=== PATIENT | male | born 1970 | race Caucasian/White ===

== ENCOUNTER → 2020-12-27 09:14 | Outpatient (CLI) | payer OTHER, SELFPAY ==
[2020-12-27 12:28] LABS: Hematocrit 45.8 % (40-54); Mean Corp Hgb Conc 32.8 g/dL (32-36); Mean Corpuscular Hgb 28.6 pg (27.0-32.0); Mean Corpuscular Volume 87.4 fL (80-94); Mean Platelet Vol. 10.1 fl (6.2-12.0); Platelet Count 269 K/mm3 (150-450); RBC Distribution Width CV 12.8 % (11.6-14.6); RBC Distribution Width SD 40.8 fl (35.1-43.9); Red Blood Count 5.24 M/mm3 (4.6-6.2); White Blood Count 5.8 K/mm3 (4.4-11.0)
[2020-12-27 12:37] LABS: ALB/GLOB Ratio 1.2 RATIO (0.9-2.4); AST(SGOT) 25 U/L (15-37); Alanine Aminotransfer ALT/SGPT 60 U/L (16-61); Alkaline Phosphatase 63 U/L (45-117); Anion Gap 6 (5-15); BUN 14 mg/dL (7-18); BUN/Creat Ratio 13.1 RATIO (10-20); Calcium,Total 8.8 mg/dL (8.5-10.1); Chloride 107 mmol/L (98-107); Cholesterol 215 mg/dL (200); Creatinine, Serum 1.07 mg/dL (0.70-1.30); EST Glomerular Filtration Rate 77 mL/min (>60); Est Glom Filt Rate - Afr Amer 93 mL/min (>60); Globulin 3.2 g/dL (2.2-4.2); Glucose 95 mg/dL (74-106); High Density Lipoprotein 45 mg/dL; PSA,Total - Annual Screen 0.41 ng/mL (0.00-4.00); Potassium 4.3 mmol/L (3.5-5.1); Protein, Total 7.2 g/dL (6.4-8.2); Sodium Level 138 mmol/L (136-145); Thyroid Stim Hormone (TSH) 1.04 uIU/mL (0.358-3.74); Triglycerides 110 mg/dL; Very Low Density Lipoprotein 22 mg/dL (5-40)
[2020-12-27 12:44] LABS: Vitamin B12 507 pg/mL (211-911); Vitamin D,25 Hydroxy 33.3 ng/mL
== END ==
PROVIDERS: PCP Family Medicine; Visit Provider Family Medicine
DX: R53.83 Other fatigue (principal); Z12.5 Encounter for screening for malignant neoplasm of prostate; Z13.220 Encounter for screening for lipoid disorders
CPT/HCPCS: 36415; 80053; 80061; 82306; 82607; 84153; 84403; 84443; 85027; G0103

== ENCOUNTER → 2021-06-06 | Outpatient (CLI) | payer OTHER, SELFPAY | END | disposition home or self-care (01) | PROVIDERS: PCP Family Medicine; Visit Provider Family Medicine | DX: B34.9 Viral infection, unspecified (principal) | CPT/HCPCS: 87635; U0005; U0003 ==

== ENCOUNTER → 2021-06-16 | Outpatient (CLI) | payer OTHER, SELFPAY ==
--- NOTE | 2021-06-16 12:40 | LES_PTH ---
PATIENT: ANNEMARIE FONSECA III [facility] U#:[id number] AGE/SX: 50/M ROOM: RE06/16/[address]: Dr. Truman Torres MD : 1970 BED: DIS: 06/16/2021 SPEC #: [id number] RECD: 06/16/21 14:56 STATUS: RICH URIAS #: [id number] DAVID: 06/16/21 12:[address]: Truman Torres DEPT: SURGICAL PATHOLOGY RECD BY: Ellen Anderson ENTERED: 06/17/21 09:32 SP TYPE: Lesion OTHR DR: Dr. Jay Esquivel MD [facility] Tissues: Skin of external ear, NOS Procedures: Surgery Specimen Level IV HEADER OPERATION: Excision benign lesion right ear PRE-OP DIAGNOSIS: Right ear lesion TISSUE SUBMITTED: Right ear lesion MICROSCOPIC DIAGNOSIS Right ear lesion, excision: Pseudoepitheliomatous hyperplasia, hyperkeratosis and parakeratosis. Dermal chronic inflammation and reactive changes. Negative for malignancy. See comment. OSMEL:hernando 06/18/2021 COMMENT Clinical correlation and appropriate follow up are necessary. MICROSCOPIC DESCRIPTION Slides are reviewed. GROSS DESCRIPTION Received in fixative is one container labeled with the patient's name and designated right ear lesion. The specimen consists of a piece of guzman-white skin measuring 0.5 x 0.5 x 0.3 cm. The specimen is inked, bisected and submitted entirely in one cassette. / OSMEL:hernando 06/17/21 TC:5 CPT: 42149
== END | disposition home or self-care (01) ==
LOC: LABSPEC 15:10
PROVIDERS: PCP Family Medicine; Visit Provider Otolaryngology
DX: L85.8 Other specified epidermal thickening (principal)
CPT/HCPCS: 88305

== ENCOUNTER → 2022-01-08 | Outpatient (CLI) | payer OTHER, SELFPAY | END | disposition home or self-care (01) | PROVIDERS: PCP Family Medicine; Visit Provider Family Medicine | DX: U07.1 COVID-19 (principal) | CPT/HCPCS: 87635; U0003; U0005 ==

== ENCOUNTER → 2023-04-28 | Outpatient (CLI) | payer OTHER, SELFPAY ==
[2023-04-28 15:04] LABS: Absolute Lymphocyte Count 1.91 X10^3/uL (0.83-4.51); Absolute Neutrophil Count 3.6 X10^3/uL (2.0-7.7); Basophil# 0.02 X10^3/uL; Basophil% 0.3 % (0-1); Eosinophil# 0.07 X10^3/uL; Eosinophils% 1.2 % (0-5); Hematocrit 44.6 % (40-54); Hemoglobin 14.6 g/dL (13.0-16.5); Lymphocyte # 1.91 X10^3/ul (0.83-4.51); Lymphocyte % 31.5 % (19-41); Mean Corp Hgb Conc 32.7 g/dL (32-36); Mean Corpuscular Hgb 29.3 pg (27.0-32.0); Mean Corpuscular Volume 89.4 fL (80-94); Mean Platelet Vol. 9.8 fl (6.2-12.0); Monocyte# 0.42 X10^3/uL; Monocyte% 6.9 % (0-10); NRBC Flagged by Analyzer 0 % (0-5); Neutrophil # 3.64 X10^3/uL (2.7-7.7); Neutrophil % 59.9 % (47-70); Platelet Count 271 K/mm3 (150-450); RBC Distribution Width CV 13.3 % (11.6-14.6); RBC Distribution Width SD 43.5 fl (35.1-43.9); Red Blood Count 4.99 M/mm3 (4.6-6.2); White Blood Count 6.1 K/mm3 (4.4-11.0)
[2023-04-28 15:41] LABS: Thyroid Stim Hormone (TSH) 1.34 uIU/mL (0.358-3.74)
[2023-04-28 16:01] LABS: Vitamin D,25 Hydroxy 67.3 ng/mL
[2023-04-28 16:01] LABS: Anion Gap 4 (5-15); BUN 15 mg/dL (7-18); BUN/Creat Ratio 13.6 RATIO (10-20); Calcium,Total 9.3 mg/dL (8.5-10.1); Chloride 106 mmol/L (98-107); Cholesterol 244 mg/dL (200); EST Glomerular Filtration Rate 74 mL/min (>60); Est Glom Filt Rate - Afr Amer 90 mL/min (>60); Glucose 90 mg/dL (74-106); High Density Lipoprotein 52 mg/dL; PSA,Total - Annual Screen 0.52 ng/mL (0.00-4.00); Potassium 4.2 mmol/L (3.5-5.1); Sodium Level 139 mmol/L (136-145); Triglycerides 122 mg/dL; Very Low Density Lipoprotein 24 mg/dL (5-40)
== END | disposition home or self-care (01) ==
PROVIDERS: PCP Family Medicine; Referring Provider Family Medicine; Visit Provider Family Medicine
DX: Z13.1 Encounter for screening for diabetes mellitus (principal); Z12.5 Encounter for screening for malignant neoplasm of prostate; Z13.220 Encounter for screening for lipoid disorders; L74.513 Primary focal hyperhidrosis, soles; E55.9 Vitamin D deficiency, unspecified
CPT/HCPCS: 36415; 80048; 80061; 82306; 84153; 84403; 84443; 85025; G0103

== ENCOUNTER → 2023-07-20 | Outpatient (CLI) | payer OTHER, SELFPAY ==
--- NOTE | 2023-07-20 11:05 | LES_PTH ---
PATHOLOGY RESULTS PATIENT: ANNEMARIE FONSECA III LOC: [facility] U#:[id number] AGE/SX: 52/M ROOM: RE07/20/[address]: Dr. Jay Esquivel MD : 1970 BED: DIS: 07/20/2023 SPEC #: [id number] RECD: 07/20/23 18:25 STATUS: RICH BRIDGETT #: [id number] DAVID: 07/20/23 11:[address]: Jay Esquivel DEPT: SURGICAL PATHOLOGY RECD BY: Jeanne Ngo ENTERED: 07/21/23 08:33 SP TYPE: Lesion Tissues: Skin of arm Procedures: Surgery Specimen Level IV HEADER OPERATION: Nevus excision right elbow PRE-OP DIAGNOSIS: Rule out melanoma TISSUE SUBMITTED: Nevus right elbow MICROSCOPIC DIAGNOSIS Nevus of right elbow, shave biopsy: Benign seborrheic keratosis, inflamed. AM:hernando 07/22/2023 COMMENT Case has been reviewed in consultation with Dr. Alberto who concurs with the above diagnosis. IDC:SJ MICROSCOPIC DESCRIPTION Slides are reviewed. GROSS DESCRIPTION Received in fixative is one container labeled with the patient's name and designated right elbow. The specimen consists of a shave biopsy of guzman-light brown skin measuring 2.0 x 1.0 x 0.1 cm. The specimen is inked, serially sectioned and submitted entirely in one cassette. / OSMEL:hernando 07/21/2023 TC:5 CPT: 81524
--- OUTSIDE RECORDS SUMMARY | 2023-07-20 18:45 | XMS RPT_ITS | CCD ---
Author Name Unknown Address [address] [place] [address] Organization [facility] Results Test Name Value Interpretation Reference Range Facil ity Progress note 05-08-2021 Note Date & Type Note Facility 05-08-2021 Note HNO ID: [id number] Author: Casey Costa MD Service: ? 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 I had seen the patient on April 29 and discussed with him that this did not need to be removed. The patient considered his options and decided it does annoy him and he wishes to have it removed. Annemarie returns today for the procedure. Annemarie has not taken aspirin or aspirin products for the past 7 days. VITALS: There were no vitals taken for this visit. On examination, he has a 1 cm perianal tag in his posterior midline PROCEDURE: EXCISION OF SKIN LESION The risks, benefits and anticipated outcomes of the procedure, the risks and benefits of the alternatives to the procedure, and the roles and tasks of the personnel to be involved, were discussed with the patient, and the patient consents to the procedure and agrees to proceed. I verify that I personally obtained the patient's consent. The patient`s skin was prepped and draped in the usual fashion. A combination of Lidocaine and Marcaine was injected into the skin. Electrocautery was used to transect the base of the skin tag and was removed in its entirety. The specimen measured 1 by 1 cm. This was sent to pathology. The patient tolerated the procedure well. Assessment IMPRESSION: Status post excision via cautery of perianal skin tag likely related to anal fissure PLAN: If the patient notes any problems or signs of wound infections, the patient should contact me immediately. The patient has no sutures to remove. Diagnoses: (K60.2) Anal fissure (primary encounter diagnosis) Return to Clinic: The patient is instructed to follow-up with me as needed. Casey Costa MD [employer] / SAFETY CHECKLIST Procedure to be Performed: Excision of Anal Skin Tag Sign In: A Moment of CARE was completed. Personnel directly involved with the procedure wore the appropriate PPE (Personal Protective Equipment). Patient/Surrogate Stated/Verified: PATIENT VERIFIED(optional for EMERGENT procedures): Patient name, Date of , Relevant allergies and The intended procedure Time Out Communication: Intended patient and procedure match the source documents. Consent documented and matches the intended procedure. Sign Out: SIGN OUT (optional for EMERGENT procedures): No specimen collected. Aliyah Cali [facility] Progress note 05-01-2021 Note Date & Type Note Facility 05-01-2021 Note HNO ID: [id number] Author: Casey Costa MD Service: ? Author Type: Physician Type: Progress Notes Filed: 05/01/2021 6:40 AM Note Text: HISTORY AND PHYSICAL Annemarie Vieyra 1970 REFERRING PHYSICIAN: Jay Esquivel, * CHIEF COMPLAINT: Consult (hemorrhoid and possible pilonidal cyst) HPI: The patient is a 50 year old male with a complaint of a nodule in his posterior anal area and a history of a chronic pilonidal cyst. The patient states he has a longstanding history of occasional swelling at the site of his pilonidal cyst. He has noticed this for decades. He states that if it feels like it is getting swollen in the area he will perform some local care and usually resolves. He has never had incision and drainage of the site. The patient also presents feeling that he likely has hemorrhoids. He notes a posterior small nodule at the 12 o'clock position just towards the base of the tailbone. He notes occasionally pain and bleeding with bowel movements. In general he denies constipation diarrhea or other irregular bowel activity. 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 The patient is being seen by me today at the request of Dr. Jay Esquivel MD for my opinion and advice regarding an asymptomatic pilonidal cyst and anal nodule with bleeding. PAST MEDICAL HISTORY Diagnosis Date - GERD (gastroesophageal reflux disease) - Hemorrhoids PAST SURGICAL HISTORY Procedure Laterality Date - PAST SURGICAL HISTORY OF 1976 tonsils - PAST SURGICAL HISTORY OF hemmoroids - PAST SURGICAL HISTORY OF 1991 wisdom teeth Current Outpatient Medications Medication Sig - acetaminophen (TYLENOL EXTRA STRENGTH) 500 mg tablet Take 500 mg by mouth every 8 hours as needed. - Clindamycin Phosphate (CLEOCIN T) 1 % lotion Apply bid to aa (Patient not taking: Reported on 04/29/2021 ) - hydrOXYzine HCl (ATARAX) 25 mg tablet Take 1 tablet by mouth daily at bedtime. (Patient not taking: Reported on 04/29/2021 ) - naproxen sodium (ALEVE) 220 mg tablet Take 220 mg by mouth as needed. (Patient not taking: Reported on 04/29/2021 ) No current facility-administered medications for this visit. ALLERGIES: Grass Pollen PERSONAL HISTORY: Social History Tobacco Use - Smoking status: Former Smoker Types: Cigarettes - Smokeless tobacco: Former User Types: Chew Vaping Use - Vaping Use: Never used Substance Use Topics - Alcohol use: Yes - Drug use: No FAMILY HISTORY: FAMILY HISTORY Problem Relation Age of Onset - Diabetes Father - Hypertension Father - Diabetes Paternal Grandmother REVIEW OF SYMPTOMS: The review of systems data was entered by the nurse and reviewed by me Nursing Notes: Suzette Woods RN 04/29/2021 3:46 PM Signed REVIEW OF SYSTEMS: General: The patient NOTES fatigue, denies weight loss, NOTES weight gain, denies feeling hot, and denies feelings of cold. Eyes: The patient denies glaucoma, denies eye injury/surgery, wears glasses or contacts. Ear/Nose/Throat: The patient NOTES allergies, NOTES hayfever, NOTES ear infections, and denies bloody noses. Cardiovascular: The patient denies chest pain, denies heart disease, denies high blood pressure,denies cardiac stent, denies prior heart attack, denies irregular heart beat, denies high cholesterol, denies poor circulation, denies heart failure, other cardiac issues, denies claudication, denies cold feet, denies peripheral arterial stent. Respiratory: The patient denies tuberculosis, denies pneumonia, denies frequent cough, denies pulmonary embolism, denies shortness of breath, and denies coughing up blood. Gastrointestinal: The patient denies difficulty swallowing, NOTES acid reflux, denies ulcers, denies vomiting, denies jaundice/hepatitis, denies gallbladder problems, denies black or tarry stools, NOTES hemorrhoids, NOTES bleeding from rectum, denies diverticulitis, denies constipation, NOTES diarrhea, denies loss of stool control, and denies hernias. Kidney/Bladder: The patient denies kidney stones, denies urine infections, and denies bloody urine. Skin: The patient denies a history of skin cancer, denies bleeding/changing moles, and denies a history of skin rash. Neurologic: The patient denies a history of epilepsy/convulsions, denies headaches, denies head/spinal injuries, and denies stroke/TIA. Psychiatric: The patient denies psychiatric medications, denies depression, and denies voices, denies substance abuse. Endocrine: The patient denies thyroid disorders, denies diabetes, and denies hormonal problems. Hematologic: The patient denies a history of bruising, denies bleeding, and denies anemia, denies blood clots. Infections: The patient denies a history of measles and mumps, denies rheumatic fever, and denies sexually transmitted diseases. Musculoskeletal: The patie (more content not included)... [facility] Summary Purpose Family History No Family History Records Found Advance Directives No Advanced Directives Records Found Additional Source Comments (unrecognized sect ion and content) No Status Records Found INFORMATION SOURCE (unrecogn ized section and content) FOR RECORDS PERTAINING TO PATIENTS WHO ARE OR HAVE BEEN ENROLLED IN A CHEMICAL DEPENDENCY/SUBSTANCEABUSE PROGRAM, SOME INFORMATION MAY BE OMITTED. This clinical summary was aggregated from multiple sources. Caution should be exercised in using it in the provision of clinical care. This summary normalizes information from multiple sources, and as a consequence, information in this document may materially change the coding, format and clinical context of patient data. In addition, data may be omitted in some cases. CLINICAL DECISIONS SHOULD BE BASED ON THE PRIMARY CLINICAL RECORDS. [facility] [employer] provides no warranty or guarantee of the accuracy or completeness of information in this document.
== END | disposition home or self-care (01) ==
PROVIDERS: PCP Family Medicine; Visit Provider Family Medicine
DX: L82.0 Inflamed seborrheic keratosis (principal)
CPT/HCPCS: 88305

== ENCOUNTER → 2024-01-13 | Outpatient (CLI) | payer OTHER, SELFPAY ==
--- NOTE | 2024-01-13 12:45 | RAD_ITS ---
STUDY: X-RAY - CERVICAL SPINE REASON FOR EXAM: Male, 53 years old. pain TECHNIQUE: 7 view(s) of the cervical spine were obtained. COMPARISON: None FINDINGS: Normal anterior atlantoaxial articulation. Normal odontoid process. Normal cervical lordosis. No subluxation on the flexion extension views to suggest instability. Normal vertebral bodies and endplates. Normal disc space heights. Normal visualized intervertebral neuroforamina. The soft tissue structures are unremarkable. RAD/Cerv Spine Obl/Flex/Ext Comp IMPRESSION: Normal x-ray examination of the visualized cervical spine. Electronically Signed: Casey Atkins MD at 13:42 EDT ,
== END | disposition home or self-care (01) ==
LOC: MTRAD 12:44
PROVIDERS: PCP Family Medicine; Referring Provider Family Medicine; Visit Provider Family Medicine
DX: M54.2 Cervicalgia (principal)
CPT/HCPCS: 72052

== ENCOUNTER → 2024-12-11 | Outpatient (CLI) | payer OTHER, SELFPAY ==
--- NOTE | 2024-12-11 08:22 | US_ITS ---
PROCEDURE: ABDOMEN LIMITED 12/11/2024 REASON FOR EXAM: BLOATING, GAS COMPARISON: None FINDINGS: Liver: Diffusely echogenic suggesting fatty infiltration. Gallbladder: No stones, sludge, wall thickening or tenderness. Common bile duct: Normal measuring 5.2 mm. . Pancreas: Normal Other: Visualized portions of the right kidney are unremarkable. No right upper quadrant ascites. US/Abdomen Limited IMPRESSION: Fatty infiltration of the liver. The liver is not enlarged. Reading Location: [id number]
== END | disposition home or self-care (01) ==
PROVIDERS: PCP Internal Medicine; Referring Provider Nurse Practitioner Acute Care; Visit Provider Nurse Practitioner Acute Care
DX: R14.3 Flatulence (principal); R14.0 Abdominal distension (gaseous); R19.7 Diarrhea, unspecified
CPT/HCPCS: 76705

== ENCOUNTER → 2025-03-16 | Outpatient (CLI) | payer OTHER, SELFPAY ==
--- NOTE | 2025-03-16 07:48 | CT_ITS ---
PROCEDURE: LIMITED CHEST CT CARDIAC ONLY 03/16/2025 REASON FOR EXAM: HYPERLIPIDEMIA MILD TECHNIQUE: Procedure Code: [id number] Modality: CT Procedure: LIMITED CHEST CT CARDIAC ONLY One or more dose reduction techniques were used (e.g., Automated exposure control, adjustment of the mA and/or kV according to patient size, use of iterative reconstruction technique). RADIATION DOSE SUMMARY: CTDlvol: 12.19 mGy DLP: 243.79 mGycm COMPARISON: None. CT/Limited Chest CT Cardiac Only IMPRESSION: Limited imaging of the lungs demonstrates no acute process. No pleural effusion or pneumothorax is seen in visualized areas. No adenopathy is noted. The visualized upper abdomen demonstrates no significant abnormality. Reading Location: [id number]
--- OUTSIDE RECORDS SUMMARY | 2025-03-16 08:07 | XMS RPT_ITS | CCD ---
Author Organization [facility] Care Team Providers Care Assembler Adjuster Name Role Phone Alvin MEDLEY, Dr. Thompson Primary Care Provider Alvin MEDLEY, Dr. Thompson Referring Provider Filippo APPRENTICE PAINTER NECKTIES-C, Nhung Attending Provider Filippo APPRENTICE PAINTER NECKTIES-CNhung Referring Provider Darren MEDLEY, Dr. Levy Primary Care Provider Mildred Banks Referring Unavailable Mildred Banks Attending Unavailable Mildred Banks Primary Care Unavailable Darren, Mildred Primary Care Unavailable Nhung Barkley Referring Unavailable Nhung Barkley Attending Unavailable Mildred Banks Referring Unavailable Mildred Banks Primary Care Unavailable Ranjan Choi Attending Unavailable Ward Esquievl Primary Care Unavailable Nhung Barkley Attending Unavailable Ward Esquivel Referring Unavailable Medications Current Medications Medication Drug Class(es) Dates Sig (Normalized) Sig (Original) fluticasone propionate 0.05 mg/actuat metered dose nasal spray (2 sources) Corticosteroid Start: 11-27-2024 Fluticasone Propionate 50 mcg/actuation spray,suspension Active 1 NMA INTRANASAL daily November 27, 2024 12:00am administer into each nostril Sod Sulf-Pot Chloride-Mag Sulf (2 sources) Start: 11-29-2024 Sod Sulf-Pot Chloride-Mag Sulf (Sutab) 1.479-0.188- 0.225 gram tablet Active 0 PO per package directions 24 0 November 29, 2024 12:00am take as directed for split dose bowel prep Start: 11-29-2024 Sod Sulf-Pot C hloride-Mag Sulf (Sutab) 1.479-0.188- 0.225 gram tablet Active 0 PO per package directions November 29, 2024 12:00am take as directed for split dose bowel prep Problems Active Problems Problem Classification Problem Date Documented Da te Episodic/Chronic Disorders of lipid metabolism (1 source) Hyperlipidemia, unspecified; Translations: [Hyperlipidemia, unspecified] Onset: Chronic Esophageal disorders (6 sources) Gastroesophageal reflux disease without esophagitis; Translations: [Gastro-esophageal reflux disease without esophagitis] 11-27-2024 Chronic Other and unspecified benign neoplasm (4 sources) History of polyp of colon; Translations: [History of colonic polyps] 11-29-2024 Episodic Other gastrointestinal disorders (2 sources) Irritable bowel syndrome; Translations: [Irritable bowel syndrome without diarrhea] 11-29-2024 Chronic Other gastrointestinal disorders (4 sources) Diarrhea; Translations: [Diarrhea, unspecified] 11-29-2024 Episodic Other gastrointestinal disorders (4 sources) Passing flatus; Translations: [Flatulence] 11-29-2024 Episodic Other gastrointestinal disorders (4 sources) Abdominal bloating; Translations: [Abdominal distension (gaseous)] 11-29-2024 Episodic Other gastrointestinal disorders (1 source) Flatulence; Translations: [Flatulence] Onset: Episodic Other upper respiratory disease (2 sources) Seasonal allergy; Translations: [Other seasonal allergic rhinitis] 11-29-2024 Chronic Past or Other Problems Problem Classification Problem Date Documented Da te Episodic/Chronic Other gastrointestinal disorders (1 source) Abdominal distension (gaseous); Translations: [Abdominal distension (gaseous)] Onset: 11-29-2024 Episodic Other gastrointestinal disorders (1 source) Diarrhea, unspecified; Translations: [Diarrhea, unspecified] Onset: 11-29-2024 Episodic Results Test Name Value Interpretation Reference Range Facility Abdomen Limitedon 12-11-2024 Abdomen Limited [facility] Imaging Services [address] [place] [id number] Abdomen Limited MR#: [id number] Acct: [id number] Name: ANNEMARIE VIEYRA III Rep #: [id number] : 1970 M 54 From: Yuriy hastings MD PCP: Dr. Mildred Banks MD Status: REG CLI Study: Abdomen Limited Date of Exam: 12/11/24 Exam# [id number] Ordering Dr: Nhung Barkley PROCEDURE: ABDOMEN LIMITED 12/11/2024 REASON FOR EXAM: BLOATING, GAS COMPARISON: None FINDINGS: Liver: Diffusely echogenic suggesting fatty infiltration. Gallbladder: No stones, sludge, wall thickening or tenderness. Common bile duct: Normal measuring 5.2 mm. . Pancreas: Normal Other: Visualized portions of the right kidney are unremarkable. No right upper quadrant ascites. US/Abdomen Limited IMPRESSION: Fatty infiltration of the liver. The liver is not enlarged. Reading Location: [id number] CC: KAYLEIGH Barkley; Dr. Mildred Banks MD Event Marketing Intern: Signed Normal [facility] Gastroenterology Visit Repor ton 11-29-2024 Gastroenterology Visit Report [facility] Gastroenterology [address] [place] [address] OFFICE VISIT Date of Service: 11/29/24 MR#: [id number] Acct: [id number] Name: ANNEMARIE VIEYRA III Rep #: [id number] : 1970 Provider: KAYLEIGH myers Age/Sex: 54/M Location: [facility] Status: Signed Intake Vital Signs 11/29/24 09:40 Height 6 ft Weight: 216 lb 4 oz BMI 29.3 BP 126/82 H Respiration 18 Pulse 73 Pulse Oximetry (%) 96 Oxygen Delivery Method room air Intake Visit Reasons: YUKO REFERRAL GERD HPYLORI Chief Complaint: GI symptoms Insurance Processor Required: No Accompanied by: Self Is patient in pain?: No Allergies No Known Allergies Allergy (Unverified 11/29/24 09:43) Medications ???Medication ???Instructions ???Recorded ???Confirmed ???Type fluticasone propionate 50 1 spray intranasal QDAY 11/27/24 0 11/29/24 History mcg/actuation nasal spray,suspension sodium sul 1.479 gram-potas ch See Rx Instructions PO PER PKG DIR 11/29/24 11/29/24 Rx 0.188 gram-magnes sul 0.225 gram #24 tabs tablet (Sutab) Nurse's Note: Inconsistent bowel movements, gas, bloating, and acid reflux. Would like to be tested for food allergies. Has tried cutting certain foods out of his diet but that has not helped. [facility] Medical History (Updated 11/29/24 @ 10:20 by Nhung Barkley, APPRENTICE PAINTER NECKTIES-C) Hives Back problem Arthritis Eye twitch Hemorrhoids Folliculitis Other intervertebral disc degeneration, lumbar region without mention of lumbar back pain or lower extremity pain Heartburn Surgical History (Updated 11/27/24 @ 16:34 by Leisa Rojas) H/O hemorrhoidectomy History of tonsillectomy Family History (Updated 11/27/24 @ 16:37 by Leisa Rojas) Father Hypertension Heart disease Obesity Grandfather Hypertension Heart disease Mother Arthritis Social History (Updated 11/27/24 @ 16:35 by Leisa Rojas) Smoking Status: Former smoker Smokeless tobacco user: chewing tobacco alcohol intake: current alcohol intake frequency: holidays/special occasions only substance use type: does not use frequency: 5-6 times per week HPI HPI Chief Complaint: GI symptoms Details: ANNEMARIE VIEYRA, is a 54 M who presents to the office today for 35lb rottweiler puppy - inconsistent bowel habits, can have a lot of diarrhea and runny stools - removed diet coke from diet and this has helped bloating and gas - Colonoscopy 5 years ago - h/o lots of polyps - denies any h/o EGD - c/o bad reflux the past couple years - has been on and off PPI - pantoprazole - symptoms can be bad enough - denies any family h/o colon CA DIET: not great - chicken, rice, protein drinks - protein drinks can cause bad diarrhea - other days he can licorice and taffy for dinner - tried to be healthy and eat - tries to eat non-processed foods ROS Const Constitutional: No fatigue, fever(s) or weight change ENT ENT: No difficulty swallowing Gastro GI: Positive for bloating, diarrhea and heartburn; No abdominal pain, belching, change in bowel habits, change in stool character, coffee ground emesis, constipation, cramping, difficulty swallowing, feeling full early, excessive flatus, incontinent of stools, Vomiting blood/hematemesis, Blood in stool, loose stools, Black,tarry stools, nausea/dyspepsia, pain with swallowing, vomiting or other Musc Musculoskeletal: Positive for back pain, muscle cramps, numbness, stiffness, tingling and Arthritis; No joint pain Skin Skin: No yellowing of the eye or itchy eyes Neuro Neurology: Positive for numbness and tingling Psych Psychiatric: No anxiety and No depression Endo Endocrine: No fatigue or weight change Aller/Imm Allergy/Immunologic: No itchy eyes Landon/Lymp Hematologic/Lymphatic: No easy bleeding or easy bruising Exam Const General: cooperative, healthy appearing, no acute distress and well developed Nutritional Appearance: average body habitus and well nourished Orientation: alert and oriented x3 HENMT Head: normocephalic Ears: hearing grossly normal bilaterally Mouth: moist mucous membranes Teeth and gingiva: dentition normal Eyes Conjunctivae: conjunctivae normal Sclera: sclerae normal Neck Neck: normal visual inspection, full ROM and trachea midline Resp Effort Inspection: normal respiratory effort, able to speak in complete sentences and symmetric chest movement Auscultation: Bilateral: Clear to Auscultation Cardio Rate: regular rate Rhythm: regular rhythm GI Inspection: normal to inspection Auscultation: normal bowel sounds Palpation: soft and no hepatosplenomegaly Rectal Exam: deferred Skin General: no rashes or lesions noted and turgor normal Neuro General: patient alert and patient oriented x3 Cranial Nerves: other (CN's grossly in (more content not included)... Normal [facility] Absolute lymphocyte countOrd ered By: Shreyas Esquivel on 04-28-2023 Lymphocytes Auto (Unsp spec) [#/Vol] 1.91 10*3/uL 0.83-4.51 [facility] Basophil percentageOrdered B y: Shreyas Esquivel on 04-28-2023 Chloride [Moles/Vol] 106 mmol/L 98-107 [facility] Cholesterol [Mass/Vol] 244 mg/dL <200 [facility] Comment on above: <200 mg/dL Desirable 200-240 mg/dL Borderline >240 mg/dL High Risk Glucose [Mass/Vol] 90 mg/dL 74-106 [facility] Potassium [Moles/Vol] 4.2 mmol/L 3.5-5.1 [facility] Sodium [Moles/Vol] 139 mmol/L 136-145 [facility] Triglyceride [Mass/Vol] 122 mg/dL <199 [facility] Comment on above: The drugs N-Acetylcy steine and Metamizole may falsely depress this assay.Serum Triglycerides Reference Interval Normal <150 mg/dL Borderline high 150 - 199 mg/dL High 200 - 499 mg/dL Very High > or = 500 mg/dL Basophils/100 WBC (Bld) 0.3 % 0-1 [facility] Eosinophils/100 WBC (Bld) 1.2 % 0-5 [facility] Neutrophils (Bld) [#/Vol] 3.6 10*3/uL 2.0-7.7 [facility] Neutrophils/100 WBC (Bld) 59.9 % 47-70 [facility] Testosterone [Mass/Vol] 270.33 ng/dL [facility] Comment on above: CENTRAL 90% REFERENC E RANGES MALE AGE <50 197.44 - 669.58 ng/dL MALE AGE > or = 50 187.72 - 684.19 ng/dL FEMALE AGE <50 8.38 - 35.01 ng/dL FEMALE AGE > or = 50 <7.00 - 35.92 ng/dL Effective as of 01/14/21 WBC (Bld) [#/Vol] 6.1 10*3/uL 4.4-11.0 [facility] Blood erythrocytes count (nu mber/volume)Ordered By: Shreyas Esquivel on 04-28-2023 RBC (Bld) [#/Vol] 4.99 10*6/uL 4.6-6.[address] [facility] Blood hemoglobin measurement (mass/volume)Ordered By: Shreyas Esquivel on 04-28-2023 Hemoglobin (Bld) [Mass/Vol] 14.6 g/dL 13.0-16.5 [facility] Blood lymphocytes/100 leukoc ytesOrdered By: Shreyas Esquivel on 04-28-2023 Lymphocytes/100 WBC (Bld) 31.5 % 19-41 [facility] Blood monocytes/100 leukocyt esOrdered By: Shreyas Esquivel on 04-28-2023 Monocytes/100 WBC (Bld) 6.9 % 0-10 [facility] Blood platelet mean volumeOr dered By: Shreyas Esquivel on 04-28-2023 Platelet mean volume (Bld) [Entitic vol] 9.8 fL 6.2-12.0 [facility] Determination of erythrocyte mean corpuscular volume (MCV)Ordered By: Shreyas Esquivel on 04-28-2023 MCV (RBC) [Entitic vol] 89.4 fL 80-94 [facility] Hematocrit Auto (Bld) [Volum e fraction]Ordered By: Shreyas Esquivel on 04-28-2023 Hematocrit (Bld) [Volume fraction] 44.6 % 40-54 [facility] Laboratory - Chemistry and C hemistry - challengeOrdered By: Shreyas Esquivel on 04-28-2023 CO2 [Moles/Vol] 29.0 mmol/L 21.0-32.0 [facility] Urea nitrogen/Creatinine [Mass ratio] 13.6 mg/mg 10-20 [facility] Laboratory - Hematology and Cell countsOrdered By: Shreyas Esquivel on 04-28-2023 Erythrocyte distribution width (RBC) [Entitic vol] 43.5 fL 35.1-43.9 [facility] Erythrocyte distribution width (RBC) [Ratio] 13.3 % 11.6-14.6 [facility] Immature granulocytes/100 WBC (Bld) 0.200 % 0.0-0.9 [facility] Comment on above: IG% - Immature Granu locytes (promyelocytes, myelocytes and metamyelocytes) > 1% indicates that a LEFT SHIFT is Present. MCH (RBC) [Entitic mass] 29.3 pg 27.0-32.0 [facility] Nucleated RBC/100 WBC (Bld) [Ratio] 0 % 0-5 [facility] MCHC Auto (RBC) [Mass/Vol]Or dered By: Shreyas Esquivel on 04-28-2023 MCHC (RBC) [Mass/Vol] 32.7 g/dL 32-36 [facility] No Panel InformationOrdered By: Shreyas Esquivel on 04-28-2023 Estimated GFR (MDRD) Amer 90 mL/min >60 [facility] Comment on above: GFR Calc Estimated GFR (MDRD) Non-Af Amer 74 mL/min >60 [facility] Comment on above: Non- GFR Calc Prostate Specific Antigen Screen 0.52 ng/mL 0.00-4.00 [facility] Comment on above: This test was perfor med using the TPSA assay method [facility] the[facility]. Values obtained with differentassay methods cannot be used interchangably.When changing PSA assays in the course of monitoring apatient, additional sequential testing should be carriedout to confirm baseline values. Thyroid Stimulating Hormone (TSH) 1.34 uIU/mL 0.358-3.74 [facility] Vitamin D 25-Hydroxy 67.3 ng/mL [facility] Comment on above: Vitamin D 25(OH) Sta tus Range Deficiency <20 ng/mL (50nmol/L) Insufficiency 20 - 30 ng/mL (50 - 75 nmol/L) Sufficiency 30 - 100 ng/mL (75 - 250 nmol/L) Toxicity >100 ng/mL (>250 nmol/L) Platelets bldOrdered By: Allyn Esquivel on 04-28-2023 Platelets (Bld) [#/Vol] 271 10*3/uL 150-450 [facility] Serum or plasma calcium castro urement (mass/volume)Ordered By: Shreyas Esquivel on 04-28-2023 Calcium [Mass/Vol] 9.3 mg/dL 8.5-10.1 [facility] Serum or plasma cholesterol in HDL measurement (mass/volume)Ordered By: Shreyas Esquivel on 04-28-2023 Cholesterol in HDL [Mass/Vol] 52 mg/dL >40 [facility] Comment on above: The drugs N-Acetylcy steine and Metamizole may falsely depress this assay. Reference Range HDL <40 mg/dL Low HDL Cholesterol HDL >or= 60 mg/dL High HDL Cholesterol Serum or plasma cholesterol in VLDL measurement (mass/volume)Ordered By: Shreyas Esquivel on 04-28-2023 Cholesterol in VLDL [Mass/Vol] 24 mg/dL 5-40 [facility] Serum or plasma creatinine m easurement (mass/volume)Ordered By: Shreyas Esquivel on 04-28-2023 Creatinine [Mass/Vol] 1.10 mg/dL 0.70-1.30 [facility] Comment on above: The validity of the calculated GFR & GFRAA in patients over 70 years has not been determined. Clinical correlation is essential. Serum or plasma low density lipoprotein (LDL) cholesterol measurement (mass/volume)Ordered By: Shreyas Esquivel on 04-28-2023 Cholesterol in LDL [Mass/Vol] 168 mg/dL 0-130 [facility] Serum or plasma urea nitroge n measurement (mass/volume)Ordered By: Shreyas Esquivel on 04-28-2023 Urea nitrogen [Mass/Vol] 15 mg/dL 7-18 [facility] Thin prep Papanicolaou smear with manual screeningOrdered By: Shreyas Esquivel on 04-28-2023 Thin prep Papanicolaou smear with manual screening 4 5-15 [facility] Laboratory - Microbiology an d Antimicrobial susceptibilityon 01-08-2022 SARS-CoV-2 (COVID-19) RNA BERTIN+probe Ql (Unsp spec) Detected Not Detect [facility] Work Phone: Comment on above: Normal Reference Ran ge: Not DetectedMethod:(RT-PCR) real-time reverse transcriptase PCRLuminex RobArt Instrument*The Food and Drug Administration (FDA) has issued an Emergency Use Authorization (EAU) for the RobArt SARS-CoV-2 Assay for the rapid detection of the virus that causes COVID-19. This test has been validated, but the FDAs independent review of this validation is pending.*Negative results do not preclude infection and should not be used as the sole basis for treatment or patient management. Optimum specimen types and timing for peak viral levels during infections caused by SARS-CoV-2 have not been determined. Collection of multiple specimens from the same patient may be necessary to detect the virus. The possibility of a false negative result should be considered if the patient has clinical presentation or has had recent exposure. CNOVon 05-08-2021 CNOV Office Visit (GENSWS ) ANNEMARIE VIEYRA ([id number]) 1970 M Date Time Provider Department 05/08/21 7:00 AM CASEY CRAIN During your visit today, we recorded the following information about you: Casey Crain MD 05/08/2021 9:48 AM Signed FOLLOW UP VISIT - SKIN LESION NAME: Annemarie Vieyra CLINIC NO.: [id number] DATE OF SERVICE: 05/08/2021 : 1970 REFERRING PHYSICIAN: Ward Esquivel MD Annemarie is a patient I [...] to follow-up with me as needed. Casey Crain MD UNIVERSAL PROTOCOL / SAFETY CHECKLIST Procedure [...] EMERGENT procedures): No specimen collected. Aliyah Cali Referring Provider: WARD ESQUIVEL [[id number]] Allergies As of Date: 05/08/2021 Noted Allergy Reaction GRASS POLLEN 05/08/2019 9 - Itching Date Reviewed: 05/08/2021 Reviewed by: Aliyah Cali - Fully Assessed Reason for Visit: Procedure [88] Cmt: Excision of Anal Skin Tag Primary Visit Diagnosis:Anal fissure [K60.2] Order(s):SURGICAL PATHOLOGY [[id number]] Order #: [id number] Prescriptions as of 05/08/2021 - acetaminophen (TYLENOL EXTRA STRENGTH) 500 mg tablet Take 500 mg by mouth every 8 hours as needed. - Clindamycin Phosphate (CLEOCIN T) 1 % lotion Apply bid to aa - hydrOXYzine HCl (ATARAX) 25 mg tablet Take 1 tablet by mouth daily at bedtime. - naproxen sodium (ALEVE) 220 mg tablet Take 220 mg by mouth as needed. Problem List As Of Date 05/08/2021 Noted Resolved Spondylolisthesis of lumbar region [M43.16] 05/25/2017 Letter Text Encounter Status:Closed by CASEY CRAIN on 05/08/21 [facility] CNOVon 04-29-2021 CNOV Office Visit (GENSWS ) ANNEMARIE VIEYRA ([id number]) 1970 M Date Time Provider Department 04/29/21 3:10 PM CASEY CRAIN GENSWS During your visit today, we recorded the following information about you: Temperature Pulse Blood pressure Weight 98 degrees 90/minute 122/80 106.3 kg Height 1.829 m Suzette Woods RN 04/29/2021 3:46 PM Signed [...] and denies sexually transmitted diseases. Musculoskeletal: The patient NOTES back pain/injury, NOTES back problems, NOTES sciatica, denies knee/foot trouble, NOTES arthritis, or denies gout. When was patient's last Mammogram screening? N/A Last Colonoscopy: 10/2020 GENNY Rankin MD 04/29/2021 4:12 PM Signed The following instructions are important for you related to your office visit today with the [facility]. INSTRUCTIONS FOR AN ANAL FISSURE You have an anal fissure. An anal fissure is a small tear at at the edge of the anus. It is usually caused by straining with bowel movements, but sometime it occurs during periods of loose stools or diarrhea. 70% of the time, anal fissures will heal will regulation of the stools and conservative measures. Regulation of the bowel habits is most important - The fissure will not heal if there is continued straining. I usually recommend fiber for initial regularion. Add Miralax - now available over the counter, if fiber alone isn't helping the constipation. Healing of the fissure will not occur until bowel regulation is achieved I recommend that you avoid spicy foods and perform sitz baths three to four times per day and after bovel movements. A sitz bath is drawing luke warm water in the bathtub and soaking. The purpose is to relax the sphincter and rinse the anal area. DO NOT ADD EPSOM SALTS OR OTHER INGREDIENTS THIS CAN INCREASE THE BURNING. I will recommend a topical pain ointment, usually dibucaine or proctocream With each bowel movement, I recommend placing the topcial pain ointment prior to the bowel movements and use baby wipes and perform a sitz bath after each bowel movement. Dibucaine can be used between times as needed for anal pain. It the above measures are not helping within one week, call the office, and we may prescribe Diltiazem ointment. ( this is different from Dibucaine). If prescribed, it should be applied to the anal area twice a day. If you note any difficulties or concerns, you should contact our office immediately. If you note any additional difficulties, questions, or concerns, you should contact our office immediately @ [phone] and ask to be transferred to the General Surgery department. Casey Crain MD 05/01/2021 6:40 AM Signed HISTORY AND PHYSICAL Annemarie Vieyra 1970 REFERRING PHYSICIAN: Ward Esquivel, * CHIEF COMPLAINT: Consult (hemorrhoid (more content not included)... Normal [facility] Vital Signs Date Time Vital Sign Value Performing Clinician Byron david 11-29-2024 09:40-0400 Body height 182.[address] Ward Esquivel MD Work Phone: [facility] 11-29-2024 09:40-0400 Body mass index (BMI) [Ratio] 29.3 kg/m2 Dr. Ward Esquivel MD Work Phone: [facility] 11-29-2024 09:40-0400 Body weight 98.[address] Ward Esquivel MD Work Phone: [facility] 11-29-2024 09:40-0400 Diastolic blood pressure 82 mm[Hg] Dr. Ward Esquivel MD Work Phone: [facility] 11-29-2024 09:40-0400 Heart rate 73 /min Dr. Ward Esquivel MD Work Phone: [facility] 11-29-2024 09:40-0400 Respiratory rate 18 /min Dr. Ward Esquivel MD Work Phone: [facility] 11-29-2024 09:40-0400 SaO2% (BldA) [Mass fraction] 96 % Dr. Ward Esquivel MD Work Phone: [facility] 11-29-2024 09:40-0400 Systolic blood pressure 126 mm[Hg] Dr. Ward Esquivel MD Work Phone: [facility] Encounters Encounter Date Encounter Type Care Provider Facility Start: 03-16-2025 ambulatory [facility] Facility:[facility] Start: 03-02-2025 ambulatory [facility] Facility:[facility] Start: 12-11-2024 End: 12-11-[address] Ward Esquivel MD Work Phone: [facility] Start: 12-11-2024 End: 12-11-2024 Patient encounter procedure Nhung VICTOR -[facility] Work Phone: Start: 12-11-2024 End: 12-11-2024 ambulatory Mildred Banks Facility:[facility] Start: 11-29-2024 End: 11-29-2024 Patient encounter procedure Nhung VICTOR -[facility] Work Phone: Start: 11-29-2024 End: 11-29-[address] Ward Esquivel MD Work Phone: [facility] Work Phone: Start: 07-20-2023 End: 07-20-2023 ambulatory [facility] Work Phone: Start: 07-20-2023 End: 07-20-2023 [facility] Work Phone: Start: 04-28-2023 End: 04-28-2023 Patient encounter procedure [facility], [place] Work Phone: Start: 01-08-2022 End: 01-08-2022 Patient encounter procedure [facility], Specimen Procedures Date Procedure Procedure Detail Performing Clinician Start: 12-11-[address] Ward Esquivel MD Work Phone: Plan of Treatment Date Care Activity Detail Author US Abdomen limited [facility] Payers Date Payer Category Payer Self-pay [id number] 2024 Self-pay [id number] 2016 Private Health Insurance [id number] Unknown [id number] Unknown [id number] Unknown [id number] [id number] [id number] Unknown [id number] Social History Date Type Detail Facility Start: 08-12-2016 End: 08-12-2016 Tobacco smoking status FLIS Unknown if ever smoked [facility] Start: 1970 Sex Assigned At Male [facility] Start: 11-27-2024 End: 11-29-2024 Tobacco smoking status NHIS Ex-smoker (finding) [facility] Radiology Diagnostic study note 12-11-2024 Note Date & Type Note Facility 12-11-2024 Radiology Diagnostic study note [facility] Imaging Services [address] [place], [place] [address] Abdomen Limited MR#: [id number] Acct: [id number] Name: ANNEMARIE VIEYRA III Rep #: [id number] : 1970 M 54 From: Karan Wu MD PCP: Dr. Mildred Banks MD Status: REG C SWATHI Study:Abdomen Limited Date of Exam: 11/20 09/12 Exam# [id number] Ordering Dr: Nhung Barkley APPRENTICE PAINTER [place] PROCEDURE: ABDOMEN LIMITED 12/11/2024 REASON FOR EXAM: BLOATING, GAS COMPARISON: None FINDINGS: Liver: Diffusely echogenic suggesting fatty infiltration. Gallbladder: No stones, sludge, wall thickening or tenderness. Common bile duct: Normal measuring 5.2 mm. . Pancreas: Normal Other: Visualized portions of the right kidney are unremarkable. No right upperquadrant ascites. US/Abdomen Limited IMPRESSION: Fatty infiltration of the liver. The liver is not enlarged. Reading Location: [facility] CC: APPRENTICE PAINTER NECKTIES-C Nhung Barkley; Dr. Mildred Banks MD ~ Event Marketing Intern: Signed [facility] Chief complaint+Reason for visit Narrative 11-29-2024 Note Date & Type Note Facility 11-29-2024 Chief complaint+R dane for visit Narrative YUKO REFERRAL GERD HPYLORI November 29, 2 025 9:18am BLOATING GAS December 11, 2024 8:07 am Reason for Visit Admit Date Bloating November 29, 2024 9:18 am Diarrhea November 29, 2024 9:18 am Flatulence November 29, 2024 9:18 am GERD (gastroesophageal reflux disease) J une 2024 9:18am Personal history of colonic polyps November 29, 2024 9:18am [facility] Work Phone: Evaluation note 11-29-2024 Note Date & Type Note Facility 11-29-2024 Evaluation note Diagnosis Onset Date Resolution Bloating acute November 29 9:18am Diarrhea acute November 29 9:18am Flatulence acute November 29 9:18am GERD (gastroesophageal reflux disease) acute November 29, 2024 9:18am Personal history of colonic polyps acute November 29, 2024 9:18am [facility] Work Phone: Progress note 05-08-2021 Note Date & Type Note Facility 05-08-2021 Note HNO ID: [id number] Author: Casey Crain MD Service: ? Author Type: Physician Type: Progress Notes Filed: 05/08/2021 9:48 AM Note Text: FOLLOW UP VISIT - SKIN LESION NAME: Annemarie Vieyra CLINIC NO.: [id number] DATE OF SERVICE: 05/08/2021 : 1970 REFERRING PHYSICIAN: Ward Esquivel MD Annemarie is a patient I [...] to follow-up with me as needed. Casey Crain MD UNIVERSAL PROTOCOL / SAFETY CHECKLIST Procedure [...] EMERGENT procedures): No specimen collected. Aliyah Cali [facility] Progress note 05-01-2021 Note Date & Type Note Facility 05-01-2021 Note HNO ID: [id number] Author: Casey Crain MD Service: ? 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 The patient is being seen by me today at the request of Dr. Ward Esquivel MD for my opinion and advice [...] Musculoskeletal: The patie (more content not included)... [facility] Chief complaint+Reason for visit Narrative Note Date & Type Note Facility Chief complaint+Reason for v isit Narrative YUKO REFERRAL GERD HPYLORI November 29 025 9:18am Reason for Visit Admit Date Bloating November 29, 2024 9:18 am Diarrhea Elizabeth 11th, 2025 9:18 am Flatulence November 29, 2024 9:18 am GERD (gastroesophageal reflux disease) J une 2024 9:18am Personal history of colonic polyps November 29, 2024 9:18am [employer] Work Phone: Evaluation note Note Date & Type Note Facility Evaluation note No assessment information availa [facility] Work Phone: Evaluation note Note Date & Type Note Facility Evaluation note Diagnosis Onset Date Resolution Bloating acute November 29 9:18am Diarrhea acute November 29 9:18am Flatulence acute November 29 9:18am GERD (gastroesophageal reflux disease) acute November 29, 2024 9:18am Personal history of colonic polyps acute November 29, 2024 9:18am [employer] Work Phone: Reason for referral (narrative) Note Date & Type Note Facility Reason for referral (narrative) No reason for referral information available [employer] Work Phone: Summary Purpose Family History No Family History Records Found Relationship Condition Age at Onset Recorded Date/T nadege father Hypertension Unknown Cardiac disease Unknown Obesity Unknown grandfather Hypertension Unknown mother Arthritis Unknown Advance Directives No Advanced Directives Records FoundNo Advanced Directives Records Found Chief Complaint and Reason for Visit Chief Complaint EORDER Additional Source Comments (unrecognized sect ion and content) No Status Records FoundNo Status Records Found INFORMATION SOURCE (unrecogn ized section and content) DATE CREATED AUTHOR 07/24/2021 [facility] DATE CREATED AUTHOR AUTHOR'S ORGANIZ ATION 03/02/2025 [facility] Goals (unrecognized section and content) Goals may be documented in a n alternate sectionGoals may be documented in an alternate sectionGoals may be documented in an alternate sectionGoals may be documented in an alternate section Care Teams (unrecognized sec tion and content) Team Status: Active Member Role Status Dates Dr. Shreyas Esquivel MD Family Provider Active Dr. Shreyas Esquivel MD Primary Care Provider Activ e Team Status: Inactive Member Role Status Dates Dr. Shreyas Esquivel MD Primary Care Provider, Atte nding Provider Active Team Status: Inactive Member Role Status Dates Dr. Shreyas Esquivel MD Primary Care Provider, Attending Provider, Referring Provider Active Team Status: Active Member Role Status Dates Dr. Ward Esquivel MD Family Provider Active Dr. Ward Esquivel MD Primary Care Provider Acti ve Team Status: Inactive Member Role Status Dates Dr. Ward Esquivel MD Primary Care Provider Acti ve Start: November 29, 2024 End: November 29, 2024 Dr. Ward Esquivel MD Referring Provider Active Start: November 29, 2024 End: November 29, 2024 KAYLEIGH Meraz Attending Provider Active Start: November 29, 2024 End: November 29, 2024 Team Status: Active Member Role/Relationship Status Dates Dr. Mildred Banks MD Primary Care Provider Active Team Status: Inactive Member Role/Relationship Status Dates Dr. Ward Esquivel MD Primary Care Provider Acti ve Start: November 29, 2024 End: November 29, 2024 Dr. Ward Esquivel MD Referring Provider Active Start: November 29, 2024 End: November 29, 2024 KAYLEIGH Meraz Attending Provider Active Start: November 29, 2024 End: November 29, 2024 Team Status: Inactive Member Role/Relationship Status Dates KAYLEIGH Meraz Attending Provider Active Start: December 11, 2024 End: December 11, 2024 KAYLEIGH Meraz Referring Provider Active Start: December 11, 2024 End: December 11, 2024 Dr. Mildred Banks MD Primary Care Provider Active Start: December 11, 2024 End: December 11, 2024 FOR RECORDS PERTAINING TO PATIENTS WHO ARE [...] BE BASED ON THE PRIMARY CLINICAL RECORDS. [facility] [employer] in [place] [facility]. provides no warranty or guarantee of the accuracy or completeness of information in this document.
--- NOTE | 2025-03-19 10:23 | CA.SCORE ---
Calcium Scoring Date of Study:: 03/16/25 Indications Indications: FH Coronary Calcium Scoring: High-resolution Computed Tomographic imaging of the chest was performed on [03/16/25 ], with particular attention paid to the coronary arteries. Images from the examination were analyzed for the presence and extent of coronary artery calcification , using coronary calcium quantification software. The patient tolerated the procedure well and there were no complications. The results of the coronary calcification analysis are provided below. Findings Coronary Artery Left Main (LM): 0 Left Anterior Descending (LAD): 63.6 Left Circumflex (LCX): 39.7 Right Coronary Artery (RCA): 67.9 Total Agatston Score: 171.2 Percentile Rankin-70 Calcium Scoring Interpretation: Different methods to categorize the overall amount of coronary plaque. Overall amount CAC SIS Visual of coronary plaque P1 Mild -100 <2 1-2 vessels with mild amount of plaque P2 Moderate 101-300 3-4 1-2 vessels with moderate amount, 3 vessels with mild amount of plaque P3 Severe 301-999 5-7 3 vessels with moderate amount, 1 vessel with severe amount of plaque P4 Extensive >1000 >8 2-3 vessels with severe amount of plaque Calcium Score: Moderate: 1-2 vessels w/moderate amt, 3 vessels w/mild amt of plaque Conclusion: 3 vessels with mild amount of plaque noted.
== END | disposition home or self-care (01) ==
LOC: CT 07:46
PROVIDERS: PCP Internal Medicine; Referring Provider Internal Medicine; Visit Provider Internal Medicine
DX: E78.5 Hyperlipidemia, unspecified (principal)
CPT/HCPCS: 75571; 76380

== ENCOUNTER 2025-04-18 05:11 | Day surgery (SDC) | payer OTHER, SELFPAY ==
[2025-04-18] VITALS (7 sets, daily range): BP systolic 93–105; BP diastolic 59–83; PULSE 52–68; RESP 16–18; TEMP 36.2–36.5; O2SAT 97–98; BMI 27.1
[2025-04-18] MEDS: Lactated Ringers 1,000 ML 15 ML IV (05:59)
--- NOTE | 2025-04-18 06:30 | COLBX_PTH ---
PATIENT: ANNEMARIE FONSECA III LOC: EN U#:[id number] AGE/SX: 54/M ROOM: RE04/18/[address]: Dr. Ranjan Choi DO : 1970 BED: DIS: 04/18/2025 SPEC #: [id number] RECD: 04/18/25 09:36 STATUS: RICH BRIDGETT #: [id number] DAVID: 04/18/25 06:[address]: Ranjan Choi DEPT: SURGICAL PATHOLOGY RECD BY: Torsten Carpenter ENTERED: 04/18/25 10:31 SP TYPE: COLON BX OTHR DR: Dr. Mildred Banks MD Tissues: A - Esophagus, NOS B - Gastric mucous membrane C - Duodenum, NOS D - Transverse colon E - Ileum, NOS F - COLON BIOPSY G - Rectum, NOS Procedures: Immunohistochemical Stains Surgery Specimen Level IV HEADER OPERATION: Colonoscopy with biopsy, EGD with biopsy PRE-OP DIAGNOSIS: Diarrhea, bloating, flatulence, GERD, personal history of colonic polyps TISSUE SUBMITTED: A- Distal esophagus biopsy, B- Gastric body biopsy, C- Duodenum biopsy, D- Transverse colon polyp biopsy, E- Terminal ileum biopsy, F- Random colon biopsy, G- Rectal polyp biopsy MICROSCOPIC DIAGNOSIS A. Distal esophagus, biopsy: - Squamocolumnar mucosa negative for goblet cell metaplasia. - Negative for dysplasia. B. Gastric body, biopsy: - Oxyntic mucosa with mild chronic inflammation. - IHC negative for H. pylori organisms. C. Duodenum, biopsy: - No specific pathologic change. - Negative for increased intraepithelial lymphocytes. D. Transverse colon, polyp, biopsy: - Tubular adenoma. E. Terminal ileum, biopsy: - No specific pathologic change. F. Colon, random, biopsy: - No specific pathologic change. - The histologic features of microscopic colitis are not demonstrated. G. Rectum, polyp, biopsy: - Hyperplastic polyp. MICROSCOPIC DESCRIPTION Slides are reviewed. All matched controls reacted appropriately. These tests were developed and their performance characteristics determined by [facility]. They may not have been cleared or approved by the U.S. Food and Drug Administration. The FDA has determined that such clearance or approval is not necessary. The above immunohistochemical markers and/or special?stains have been reviewed by the Pathologist. GROSS DESCRIPTION A. Received in fixative is one container labeled with the patient's name and designated Distal esophagus biopsy. The specimen consists of two irregular fragments of guzman tissue that measure 0.3 and 0.4 cm. The specimen is totally submitted in one cassette. B. Received in fixative is one container labeled with the patient's name and designated Gastric body biopsy. The specimen consists of two irregular fragments of guzman tissue that measure 0.5 and 0.8 cm. The specimen is totally submitted in one cassette. C. Received in fixative is one container labeled with the patient's name and designated Duodenum biopsy. The specimen consists of one irregular fragment of guzman tissue that measures 0.4 cm. The specimen is totally submitted in one cassette. D. Received in fixative is one container labeled with the patient's name and designated Transverse colon polyp. The specimen consists of one irregular fragment of guzman tissue that measures 0.3 cm. The specimen is totally submitted in one cassette. E. Received in fixative is one container labeled with the patient's name and designated Terminal ileum biopsy. The specimen consists of two irregular fragments of guzman tissue that measure 0.4 and 0.5 cm. The specimen is totally submitted in one cassette. F. Received in fixative is one container labeled with the patient's name and designated Random colon biopsy. The specimen consists of multiple irregular fragments of guzman tissue that in aggregate measure 1.2 x 0.6 x 0.1 cm. The specimen is totally submitted in one cassette. G. Received in fixative is one container labeled with the patient's name and designated Rectal polyp. The specimen consists of three irregular fragments of guzman tissue that measure 0.1 to 0.4 cm. The specimen is totally submitted in one cassette. [place] 04/18/2025 CPT:22056l0,25987
--- NOTE | 2025-04-18 06:34 | PCM.PRE.AN2 ---
ASA Classification* ASA Classification ASA Classification: 2 Assessment & Plan Anesthesia* Anesthesia Assessment Anesthesia Assessment: Discussed sedation and/or anesthesia options, risks, benefits, and alternatives with patient/parents/legal guardian/POA. Questions invited. The patient/parents/legal guardian/POA seems to understand and agrees to proceed with anesthesia plan. Reviewed the physical assessment, medical history, allergy history and patient home medications list prior to surgery/procedure/anesthetic and documented any changes. Performed airway and anesthesia risk assessments. Anesthesia Type Anesthesia Type: MAC Anesthesia Focused Assessment* Temperature: 97.2 F Pulse Rate: 68 Blood Pressure: 105/83 Respiratory Rate: 18 Pulse Ox: 98 Airway Assessment Mouth opens: >3 cm Mallampati Score: II Labs Anesthesia Preop lab: CBC WBC, (4.4-11.0) 6.1 K/mm3 04/28/23, 12:35 RBC, (4.6-6.2) 4.99 M/mm3 04/28/23, 12:35 Hgb, (13.0-16.5) 14.6 g/dL 04/28/23, 12:35 Hct, (40-54) 44.6 % 04/28/23, 12:35 Plt Count, (150-450) 271 K/mm3 04/28/23, 12:35 CHEMISTRY Potassium, (3.5-5.1) 4.2 mmol/L 04/28/23, 12:36 Sodium, (136-145) 139 mmol/L 04/28/23, 12:36 BUN, (7-18) 15 mg/dL 04/28/23, 12:36 Creatinine, (0.70-1.30) 1.10 mg/dL 04/28/23, 12:36 Glucose, (74-106) 90 mg/dL 04/28/23, 12:36 TSH, (0.358-3.74) 1.34 uIU/mL 04/28/23, 12:35 COAG Pre-Assessment Diagnosis/Proposed Procedure Planned Operative Procedure(s): EGD, COLONOSCOPY Anesthesia History Anesthesia History - digital solutions architect: Anesthesia History - digital solutions architect Hx Hospitalization No 04/16/25 13:22 Any Problems With Anesthesia No 04/16/25 13:22 Cholinesterase deficiency No 04/16/25 13:22 You/Your Family Experience No 04/16/25 13:22 fever (hyperthermia) with Relationship Recent Exposure to Contagious No 04/18/25 05:48 Disease Does patient have nerve No 04/16/25 13:22 stimulator Patient instructed to have device shut off --Does patient have Pacemaker No 04/18/25 05:48 or ICD? When Was Last Pacemaker Check QUESTION #4 FULL TEXT: You/Your Family Experience fever (hyperthermia) with Anesthesia Last Oral Intake Last Oral intake: Last Oral Intake NPO since 00:30 04/18/25 05:48 Meds taken in AM with sips of No 04/18/25 05:48 water? Meds patient instructed to take am of surgery PONV PONV - digital solutions architect: PONV - digital solutions architect Female No 04/16/25 13:22 HX of Motion Sickness No 04/16/25 13:22 HX of N/V After Surgery No 04/16/25 13:22 Non-Smoker No 04/16/25 13:22 Duration of Surgery greater No 04/16/25 13:22 than 60 minutes Number of Risk Factors PONV Score Height & Weight Height & Weight: Anesthesia: Height & Weight Height 6 ft 04/18/25 05:48 Weight: 91 kg 04/18/25 05:48 Body Mass Index (BMI) 27.1 04/18/25 05:48 Respiratory Assessment Respiratory Assessment - digital solutions architect: Respiratory Tract Infection Hx - digital solutions architect Hx Respiratory Tract Infection No 04/16/25 13:22 STOP Sleep Apnea STOP Sleep Apnea - digital solutions architect: STOP Sleep Apnea - digital solutions architect Hx Hypertension No 04/16/25 13:22 Hx Sleep Apnea No 04/16/25 13:22 CPAP BIPAP Do you snore loudly (louder No 04/16/25 13:22 than talking or can be heard Do you often feel tired/ No 04/16/25 13:22 fatigued/ sleepy during daytime? Has anyone observed you stop No 04/16/25 13:22 breathing during sleep? STOP Results Negative 04/16/25 13:22 QUESTION #5 FULL TEXT : Do you snore loudly (louder than talking or can be heard through closed doors)? Tobacco Use History Tobacco Use History - digital solutions architect: Tobacco Use History - digital solutions architect Tobacco Use Smoking Status Former smoker 04/16/25 13:22 Hx Tobacco Use Yes: CHEWS 04/16/25 13:22 Years Smoking Packs Smoked per Day Smoking Cessation Date was Yes - quit smoking within 15 04/16/25 13:22 within the last 15 years years Hx Smoking Cessation Date Hx Smoking Cessation Counseling Hematologic Medial History Hematologic Hx - digital solutions architect: Hematologic Medical Hx - documentation clerk Hx of Blood Transfusion No 04/16/25 13:22 Hx of Transfusion in last 3 No 04/16/25 13:22 Months Date of Last Transfusion (if within last 3 months) Ever experience any problems No 04/16/25 13:22 with transfusion(s)? Specify any problems Hx of Preganancy in last 3 N/A 04/16/25 13:22 Months Nurse Filling Out Transfusion MGRIFFITH 04/16/25 13:22 & Questions: Date: 04/16/25 04/16/25 13:22 Time: 13:24 04/16/25 13:22 Patient unable to answer at this time (ie. confused, unrespo /Reproduction History /Reproductive History - digital solutions architect: /Reproductive Hx- digital solutions architect Hx Now Gestational Age (in weeks): EDC: Hx Hx Para Hx Section SAB Active Medications Active Medications: Current Medications Generic Name Dose Route Start Last Admin Trade Name Freq PRN Reason Stop Dose Admin Lactated Ringer's 1,000 mls @ 15 mls/hr 04/18/25 05:30 04/18/25 05:59 IV 15 mls/hr .Q48H DARRION Administration PFSH Medical History Gout Wears glasses Injury of head and neck History of IBS Gastric reflux Chews tobacco Back problem Arthritis Eye twitch Hemorrhoids Folliculitis Other intervertebral disc degeneration, lumbar region without mention of lumbar back pain or lower extremity pain Heartburn Home Medications ?Medication ?Instructions ?Recorded ?Last Taken ?Type sodium sul 1.479 gram-potas ch See Rx Instructions PO PER PKG DIR 11/29/24 04/18/25 Rx 0.188 gram-magnes sul 0.225 gram #24 tabs tablet (Sutab) Bacillus coagulans 500 million 1 tab PO DAILY 04/16/25 04/17/25 History cell-inulin 1.25 gram chewable tablet (Align Dualbiotic) colchicine 0.6 mg capsule 0.6 mg PO BID 04/16/25 04/16/25 History pantoprazole 40 mg tablet,delayed 40 mg PO DAILY 04/16/25 04/17/25 History release triamcinolone acetonide 55 mcg 1 spray intranasal DAILY 04/16/25 04/17/25 History nasal spray aerosol (24 Hour Nasal Allergy) Allergy/AdvReac Type Severity Reaction Status Date / Time No Known Allergies Allergy Verified 04/18/25 05:47 Family History Father Hypertension Heart disease Obesity Grandfather Hypertension Heart disease Mother Arthritis Surgical History History of stem cell transplant History of colonoscopy H/O hemorrhoidectomy History of tonsillectomy Social History Smoking Status: Former smoker Smokeless tobacco user: chewing tobacco alcohol intake: current alcohol intake frequency: holidays/special occasions only substance use type: does not use frequency: 5-6 times per week Review of Systems (Anesthesia) ROS Narrative System reviewed and no additional complaints, except as documented.
--- NOTE | 2025-04-18 06:39 | PCM.HP.STD ---
HPI - General General Date of Admission: 04/18/25 Date of Service: 04/18/25 Chief Complaint: Bloating, diarrhea, GERD and screening colonoscopy HPI Narrative ANNEMARIE FONSECA, is a 54 M who presents [Chief Complaint: GI symptoms of bloating, diarrhea, GERD and in need of screening colonoscopy 35lb rottweiler puppy - inconsistent bowel habits, can have a lot of diarrhea and runny stools - removed diet coke from diet and this has helped bloating and gas - Colonoscopy 5 years ago - h/o lots of polyps - denies any h/o EGD - c/o bad reflux the past couple years - has been on and off PPI - pantoprazole - symptoms can be bad enough - denies any family h/o colon CA DIET: not great - chicken, rice, protein drinks - protein drinks can cause bad diarrhea - other days he can licorice and taffy for dinner - tried to be healthy and eat - tries to eat non-processed foods [facility] History Gout Wears glasses Injury of head and neck History of IBS Gastric reflux Chews tobacco Back problem Arthritis Eye twitch Hemorrhoids Folliculitis Other intervertebral disc degeneration, lumbar region without mention of lumbar back pain or lower extremity pain Heartburn Home Medications ?Medication ?Instructions ?Recorded ?Last Taken ?Type sodium sul 1.479 gram-potas ch See Rx Instructions PO PER PKG DIR 11/29/24 04/18/25 Rx 0.188 gram-magnes sul 0.225 gram #24 tabs tablet (Sutab) Bacillus coagulans 500 million 1 tab PO DAILY 04/16/25 04/17/25 History cell-inulin 1.25 gram chewable tablet (Align Dualbiotic) colchicine 0.6 mg capsule 0.6 mg PO BID 04/16/25 04/16/25 History pantoprazole 40 mg tablet,delayed 40 mg PO DAILY 04/16/25 04/17/25 History release triamcinolone acetonide 55 mcg 1 spray intranasal DAILY 04/16/25 04/17/25 History nasal spray aerosol (24 Hour Nasal Allergy) Allergy/AdvReac Type Severity Reaction Status Date / Time No Known Allergies Allergy Verified 04/18/25 05:47 Family History Father Hypertension Heart disease Obesity Grandfather Hypertension Heart disease Mother Arthritis Surgical History History of stem cell transplant History of colonoscopy H/O hemorrhoidectomy History of tonsillectomy Social History Smoking Status: Former smoker Smokeless tobacco user: chewing tobacco alcohol intake: current alcohol intake frequency: holidays/special occasions only substance use type: does not use frequency: 5-6 times per week ROS Constitutional Constitutional: Denies fatigue, fever(s), poor appetite, weight gain or weight loss Gastrointestinal Gastrointestinal: Denies belching, bloating, change in bowel habits, change in stool character, chewing difficulty, coffee ground emesis, constipation, cramping, diarrhea, dyspepsia, dysphagia, early satiety, excessive flatus, fecal incontinence, heartburn, hematemesis, hematochezia, hemorrhoids, loose stools, melena, nausea, odynophagia, rectal bleeding, tenesmus, vomiting or weight changes Vital Signs Vital Signs Vital Signs: 04/18/25 05:48 04/18/25 05:48 04/18/25 06:35 Temperature 97.2 F L 97.2 F L Temperature Source Temporal Pulse Rate 68 68 Respiratory Rate 18 18 Respiratory Pattern Normal Blood Pressure 105/83 H 105/83 H Blood Pressure Mean 90 Blood Pressure Source Monitor Blood Pressure Position Sitting Blood Pressure Location Left Arm Pulse Ox 98 98 Oxygen Delivery Method Room Air Weight Weight: 200 lb 9.93 oz Body Mass Index (BMI) 27.1 Physical Exam Const alert, oriented x3, no apparent distress and healthy appearing General Appearance: cooperative GI normal to inspection, nondistended, normoactive bowel sounds, soft to palpation, non-tender and non-distended Percussion: normal to percussion Rectal Exam: deferred Assessment & Plan Assessment/Plan (1) Diarrhea: (2) Flatulence: (3) Bloating: (4) GERD (gastroesophageal reflux disease): (5) Personal history of colonic polyps: PLAN: Assessment and Plan Assessment and Plan (1) Personal history of colonic polyps: Status: Acute (2) GERD (gastroesophageal reflux disease): Status: Acute (3) Bloating: Status: Acute (4) Flatulence: Status: Acute (5) Diarrhea: Status: Acute Orders: Orders Abdomen Limited Today R14.0 - Abdominal distension (gaseous), R14.3 - Flatulence, R19.7 - Diarrhea, unspecified Medications: New sod sulf-pot chloride-mag sulf 1.479-0.188- 0.225 gram (Sutab) take as directed for split dose bowel prep 24 tabs 0RF Plan 54-year-old male presents for initial consultation with complaints of IBS-D, bloating, flatulence, and GERD. He reports colonoscopy revealed polyps 5 years ago and denies any prior EGD. He takes PPI as needed. Denies any family history of colon cancer. I have recommended a high-fiber diet, daily probiotic and scheduled abdominal ultrasound, and bidirectional endoscopies. He will follow-up in the office to discuss results. Note: [employer] speech recognition associate merchant software was used to create portions of this document. Sound-alike and misspelled words, as well as other associate merchant errors may be contained in the documentation. Patient Instructions: High Fiber Diet - may add fiber supplement such as FiberCon 2 tablets once a day or resume Citrucel Start a probiotic (Align, Culturelle or ReliSen) once daily. These are all multispecies probiotics, pick the cheapest one. Schedule ABD US - call [phone] Colonoscopy and EGD - SuTab ]
--- NOTE | 2025-04-18 07:13 | POSTOP.ANE_ITS ---
Anesthesia: Postop Eval I
--- NOTE | 2025-04-18 07:13 | PCM.POST.ANE ---
Anesthesia: Postop Eval I Current Vital Signs Temperature: 97.7 F Pulse Rate: 57 Blood Pressure: 96/59 Respiratory Rate: 16 Pulse Ox: 98 Oxygen Delivery Method: Room Air Assessment Airway patent: Yes Spontaneous unlabored respirations: Yes Mental status: Awake and Calm nausea: No Vomiting: No Anesthesia Complication: No Fluid Hydration Crystalloid volume administer (ml): 600 Total IV fluid infused: 600 Progress Note Anesthesia document: Postop Eval 1 completed: Yes
--- NOTE | 2025-04-18 07:16 | OP.EGD_ITS ---
Patient Name: Jed Vieyra
--- NOTE | 2025-04-18 07:19 | OP.COLON_ITS ---
Patient Name: Jed Vieyra
--- NOTE | 2025-04-18 08:20 | POSTOPAN2_ITS ---
Anesthesia Postop Eval I Sum
--- NOTE | 2025-04-18 08:20 | PCM.POSTANE2 ---
Anesthesia Postop Eval I Sum Postop Eval Completion status Anesthesia document: Postop Eval 1 completed: Yes Anesthesia Postop Eval I Summary Anesthesia Postop Eval I Summary: Anesthesia Postop Eval I: Assessment Summary Airway patent Yes 04/18/25 07:15 [email or web address] Spontaneous unlabored Yes 04/18/25 07:15 [email or web address] respirations Mental status Awake,Calm 04/18/25 07:15 [email or web address] nausea No 04/18/25 07:15 [email or web address] Vomiting No 04/18/25 07:15 [email or web address] Anesthesia Postop Eval I: Fluid Summary Crystalloid volume administer 600 04/18/25 07:15 [email or web address] (ml) Colloids volume administered ( ml) Blood Product volume administered (ml) Total IV fluid infused 600 04/18/25 07:15 [email or web address] Anesthesia Postop Eval I: Summary Notes Anesthesia Complication No 04/18/25 07:15 [email or web address] Anesthesia Complication Comment: Post-operative progress note Anesthesia: Postop Eval II Evaluation Mental status: Awake Pain Level: 0 nausea: No Vomiting: No
== END 2025-04-18 08:06 | disposition home or self-care (01) ==
LOC: EN 05:11 → AC 05:13
PROVIDERS: PCP Internal Medicine; Referring Provider Internal Medicine; Visit Provider Internal Medicine Gastroenterology
PROC: 0DJD8ZZ Inspection of Lower Intestinal Tract, Via Natural or Artificial Opening Endoscopic (ICD-10-PCS; CPT 45378; principal; 2025-04-18 06:25)
DX: Z12.11 Encounter for screening for malignant neoplasm of colon (principal); Z94.84 Stem cells transplant status; K29.50 Unspecified chronic gastritis without bleeding; K62.1 Rectal polyp; K21.9 Gastro-esophageal reflux disease without esophagitis; R14.0 Abdominal distension (gaseous); K63.89 Other specified diseases of intestine; Z86.0100 Personal history of colon polyps, unspecified; Z79.899 Other long term (current) drug therapy; F17.220 Nicotine dependence, chewing tobacco, uncomplicated; R14.3 Flatulence; K22.89 Other specified disease of esophagus; K63.5 Polyp of colon; K52.9 Noninfective gastroenteritis and colitis, unspecified
CPT/HCPCS: 44361; 45380; 88305; 88342; J2405